=== PATIENT | male | born 1955 | race Caucasian/White ===

== ENCOUNTER 2020-07-06 08:57 | Emergency (ER) | payer OTHER ==
[2020-07-06] MEDS ORDERED: NA CHLORIDE 0.9% 500 ML ONE (09:39)
[2020-07-06 10:00] LABS: Absolute Lymphocytes (CBC) 1.5 K/uL (0.7-4.9); Basophils % 0.6 % (0-1.3); Hematocrit 42.2 % (39.6-49.0); Lymphocytes % 13.7 % (15.3-44.8); MPV 7.5 fL (7.6-11.3)
[2020-07-06 10:19] LABS: ALT/SGPT 44 U/L (12-78); AST/SGOT 49 U/L (15-37); Alkaline Phosphatase 66 U/L (45-117); BUN Blood Urea Nitrogen 6 mg/dL (7-18); Bicarbonate 23 mmol/L (21-32); Bilirubin Direct < 0.1 mg/dL (0-0.2); Bilirubin Total 0.3 mg/dL (0.2-1.0); Glucose Level 103 mg/dL (74-106); Lipase 173 U/L (73-393); Potassium 3.7 mmol/L (3.5-5.1); Protein, Total 7.1 g/dL (6.4-8.2); Sodium Level 131 mmol/L (136-145)
--- NOTE | 2020-07-06 11:43 | RAD REPORT ---
EXAM DESCRIPTION: CT - Abdomen Pelvis W Contrast - 07/06/2020 11:08 am CLINICAL HISTORY: Abdominal pain. COMPARISON: None. TECHNIQUE: Computed axial tomography of the abdomen and pelvis was obtained. 100 cc Isovue-300 is ad ministered intravenously. Oral contrast was given. All CT scans are performed using dose optimization technique as appropriate and may include automated exposure control or mA/KV adjustment according to patient size. FINDINGS: The liver, spleen, , adrenals and kidneys appear unremarkable. The pancreatic head is borderline prominent. The density is normal. No pancreatic/common bile duct di latation The appendix is normal caliber. There is no evidence of diverticulitis Atherosclerotic disease IMPRESSION: Borderline prominence of the pancreatic head. Given that the density is normal this pro bably is a normal variant. It is recommended that the patient have a followup ultrasound in 2 months for re-evaluation
[2020-07-06 13:43] LABS: Urine Blood TRACE (NEG); Urine Glucose NEGATIVE (NEG); Urine Protein NEGATIVE (NEG)
[2020-07-06 13:51] LABS: Urine Bacteria NONE SEEN /HPF (NONE SEEN); Urine Culture Reflex Order NOT NEEDED; Urine RBC <5 /HPF (NONE SEEN)
--- NOTE | 2020-07-06 14:28 | EDPHYS ---
Physician Documentation [facility] Name: Tylor Hanna Age: 64 yrs Sex: Male : 1955 Arrival Date: 07/06/2020 Time: 09:00 Bed 8 Private MD: Femi Roa E ED Physician Isidro Chatman HPI: 07/06 09:36 This 64 yrs old Male presents to ER via Ambulatory with complaints of Fever, snw Diarrhea. 09:36 The patient reports fever, that was measured at 102 degrees Fahrenheit. Onset: The snw symptoms/episode began/occurred 8 day(s) ago, and became persistent. Associated signs and symptoms: Pertinent positives: chills, decreased appetite, diarrhea. 09:40 Severity of symptoms: At their worst the symptoms were moderate. The patient has not snw experienced similar symptoms in the past. The patient has not recently seen a physician, the patient's primary care provider is Dr. Roa. denies abd pain. Historical: - Allergies: 09:15 No Known Allergies; iw - Home Meds: 09:15 lisinopril 10 mg Oral tab 1 tab once daily [Active]; aspirin 325 mg Oral tab 1 tab once iw daily [Active]; simvastatin 40 mg Oral tab 1 tab once daily [Active]; trazodone 150 mg Oral tab 0.5 tab nightly [Active]; - PMHx: 09:15 Hypertension; Myocardial infarction; Hyperlipidemia; iw - PSHx: 09:15 Heart stents; shoulder; Knee surgery; iw - Immunization history:: Adult Immunizations. - Social history:: Smoking status: Patient reports the use of cigarette tobacco products, smokes two packs cigarettes per day. quit 13 days ago, Patient/guardian denies using tobacco. ROS: 09:34 Eyes: Negative for injury, pain, redness, and discharge, ENT: Negative for injury, snw pain, and discharge, Neck: Negative for injury, pain, and swelling, Cardiovascular: Negative for chest pain, palpitations, and edema, Respiratory: Negative for shortness of breath, cough, wheezing, and pleuritic chest pain, Abdomen/GI: Negative for abdominal pain, nausea, vomiting, and constipation, + diarrhea Back: Negative for injury and pain, : Negative for injury, bleeding, discharge, and swelling, MS/Extremity: Negative for injury and deformity, Skin: Negative for injury, rash, and discoloration, Neuro: Negative for headache, weakness, numbness, tingling, and seizure. 09:34 Constitutional: Positive for body aches, chills, fever, poor PO intake. Exam: 09:33 Head/Face: Normocephalic, atraumatic. Eyes: Pupils equal round and reactive to light, snw extra-ocular motions intact. Lids and lashes normal. Conjunctiva and sclera are non-icteric and not injected. Cornea within normal limits. Periorbital areas with no swelling, redness, or edema. ENT: Nares patent. No nasal discharge, no septal abnormalities noted. Tympanic membranes are normal and external auditory canals are clear. Oropharynx with no redness, swelling, or masses, exudates, or evidence of obstruction, uvula midline. Mucous membranes moist. Neck: Trachea midline, no thyromegaly or masses palpated, and no cervical lymphadenopathy. Supple, full range of motion without nuchal rigidity, or vertebral point tenderness. No Meningismus. Chest/axilla: Normal chest wall appearance and motion. Nontender with no deformity. No lesions are appreciated. Cardiovascular: Regular rate and rhythm with a normal S1 and S2. No gallops, murmurs, or rubs. Normal PMI, no JVD. No pulse deficits. Respiratory: Lungs have equal breath sounds bilaterally, clear to auscultation and percussion. No rales, rhonchi or wheezes noted. No increased work of breathing, no retractions or nasal flaring. Abdomen/GI: Soft, non-tender, with normal bowel sounds. No distension or tympany. No guarding or rebound. No evidence of tenderness throughout. Back: No spinal tenderness. No costovertebral tenderness. Full range of motion. Skin: Warm, dry with normal turgor. Normal color with no rashes, no lesions, and no evidence of cellulitis. MS/ Extremity: Pulses equal, no cyanosis. Neurovascular intact. Full, normal range of motion. Neuro: Awake and alert, GCS 15, oriented to person, place, time, and situation. Cranial nerves II-XII grossly intact. Motor strength 5/5 in all extremities. Sensory grossly intact. Cerebellar exam normal. Normal gait. Psych: Awake, alert, with orientation to person, place and time. Behavior, mood, and affect are within normal limits. 09:33 Constitutional: The patient appears alert, awake, febrile. Vital Signs: 09:11 BP 147 / 89; Pulse 101; Resp 16 S; Temp 100.1; Pulse Ox 100% on R/A; Weight 63.5 kg; iw Height 6 ft. 0 in. (182.88 cm); Pain 0/10; 09:52 BP 156 / 75; Pulse 81; Resp 15; Pulse Ox 100% ; Pain 0/10; jl7 11:00 BP 141 / 78; Pulse 66; Resp 15 S; Pulse Ox 99% on R/A; jl7 12:00 BP 119 / 72; Pulse 62; Resp 15; Pulse Ox 99% ; jl7 12:38 BP 155 / 97; Pulse 91; Resp 20 S; Pulse Ox 98% on R/A; ca1 14:00 BP 134 / 72; Pulse 65; Resp 17 S; Pulse Ox 100% ; jl7 09:11 Body Mass Index 18.99 (63.50 kg, 182.88 cm) iw MDM: 09:36 Patient medically screened. snw 14:35 Data reviewed: vital signs, nurses notes. Data interpreted: Pulse oximetry: on room air snw is 98 %. Interpretation: normal. Counseling: I had a detailed discussion with the patient and/or guardian regarding: the historical points, exam findings, and any diagnostic results supporting the discharge/admit diagnosis, the presence of at least one elevated blood pressure reading (>120/80) during this emergency department visit, lab results, radiology results, the need for outpatient follow up, to return to the emergency department if symptoms worsen or persist or if there are any questions or concerns that arise at home. Special discussion: I have referred the patient to see his PCP for further evaluation of high blood pressure. Based on the history and exam findings, there is no indication for further emergent testing or inpatient evaluation. I discussed with the patient/guardian the need to see the primary care provider for further evaluation of the symptoms. 07/06 09:16 Order name: Basic Metabolic Panel; Complete Time: 10:20 snw 07/06 09:16 Order name: CBC with Diff; Complete Time: 10:03 snw 07/06 09:16 Order name: Hepatic Function; Complete Time: 10:20 snw 07/06 09:16 Order name: Lipase; Complete Time: 10:20 snw 07/06 09:16 Order name: Urine Culture [facility] 07/06 09:16 Order name: Urine Microscopic Only; Complete Time: 13:52 snw 07/06 09:16 Order name: IV Saline Lock; Complete Time: 09:51 snw 07/06 09:16 Order name: CT Abd/Pelvis - PO and IV Contrast; Complete Time: 11:57 snw 07/06 09:17 Order name: CDIFF [facility] 07/06 09:17 Order name: Occult Blood [facility] 07/06 09:17 Order name: Fecal Leukocyte Stain [facility] 07/06 09:17 Order name: Stool Culture [facility] 07/06 13:30 Order name: Urine Dipstick--Ancillary (enter results); Complete Time: 13:45 bd 07/06 09:16 Order name: Labs collected and sent; Complete Time: 09:51 snw Administered Medications: 09:51 Drug: NS 0.9% 500 ml Route: IV; Rate: bolus; Site: right forearm; jl7 10:45 Follow up: Response: No adverse reaction; IV Status: Completed infusion; IV Intake: jl7 500ml Disposition: 16:24 Co-signature as Attending Physician, Isidro Chatman MD. rn Disposition: 07/06/20 14:27 Discharged to Home. Impression: Fever presenting with conditions classified elsewhere, Diarrhea, unspecified. - Condition is Stable. - Discharge Instructions: Food Choices to Help Relieve Diarrhea, Adult, Diarrhea, Adult, Fever, Adult, Rehydration, Adult. - Prescriptions for Augmentin 875- 125 mg Oral Tablet - take 1 tablet by ORAL route every 12 hours for 10 days; 20 tablet. - Medication Reconciliation Form, Thank You Letter, Antibiotic Education, Prescription Opioid Use form. - Follow up: Emergency Department; When: As needed; Reason: Worsening of condition. Follow up: Femi Roa MD; When: 5 - 6 days; Reason: Recheck today's complaints, Continuance of care, Re-evaluation by your physician. - Notes: Please obtain stool culture and take to lab within one hour. Start antibiotics after collection. Signatures: Dispatcher [employer] EDMS Allison Holt, JACQUARD CARD CUTTER-C JACQUARD CARD CUTTER-Csnw Mary West, Isidro Gibson RN, MD MD rn Leal, Jahala, RN RN jl7 Corrections: (The following items were deleted from the chart) 15:30 14:27 07/06/2020 14:27 Discharged to Home. Impression: Fever presenting with conditions jl7 classified elsewhere; Diarrhea, unspecified. Condition is Stable. Forms are Medication Reconciliation Form, Thank You Letter, Antibiotic Education, Prescription Opioid Use. Follow up: Emergency Department; When: As needed; Reason: Worsening of condition. Follow up: Femi Roa; When: 5 - 6 days; Reason: Recheck today's complaints, Continuance of care, Re-evaluation by your physician. snw
--- NOTE | 2020-07-06 14:28 | ER ---
Nurse's Notes [facility] Name: Tylor Hanna Age: 64 yrs Sex: Male : 1955 Arrival Date: 07/06/2020 Time: 09:00 Bed 8 Private MD: Femi Roa E Diagnosis: Fever presenting with conditions classified elsewhere;Diarrhea, unspecified Presentation: 07/06 09:11 Chief complaint: Patient states: fever on and off for 8 days, diarrhea in morning all 8 iw days, stool was completely black, was taking Pepto Bismol pills, no pain, vomited once 8 days ago. Coronavirus screen: chills, diarrhea, fever, Client presents with at least one sign or symptom that may indicate coronavirus-19. Standard/surgical mask placed on the client. Provider contacted for isolation considerations. Ebola Screen: Patient negative for fever greater than or equal to 101.5 degrees Fahrenheit, and additional compatible Ebola Virus Disease symptoms Patient denies exposure to infectious person. Patient denies travel to an Ebola-affected area in the 21 days before illness onset. No symptoms or risks identified at this time. Initial Sepsis Screen: Does the patient meet any 2 criteria? No. Patient's initial sepsis screen is negative. Does the patient have a suspected source of infection? No. Patient's initial sepsis screen is negative. Risk Assessment: Do you want to hurt yourself or someone else? Patient reports no desire to harm self or others. Onset of symptoms was June 28, 2020. 09:11 Method Of Arrival: Ambulatory iw 09:11 Acuity: NICHELLE 3 iw Historical: - Allergies: 09:15 No Known Allergies; iw - Home Meds: 09:15 lisinopril 10 mg Oral tab 1 tab once daily [Active]; aspirin 325 mg Oral tab 1 tab once iw daily [Active]; simvastatin 40 mg Oral tab 1 tab once daily [Active]; trazodone 150 mg Oral tab 0.5 tab nightly [Active]; - PMHx: 09:15 Hypertension; Myocardial infarction; Hyperlipidemia; iw - PSHx: 09:15 Heart stents; shoulder; Knee surgery; iw - Immunization history:: Adult Immunizations. - Social history:: Smoking status: Patient reports the use of cigarette tobacco products, smokes two packs cigarettes per day. quit 13 days ago, Patient/guardian denies using tobacco. Screenin:52 Abuse screen: Denies threats or abuse. Denies injuries from another. Nutritional jl7 screening: No deficits noted. Tuberculosis screening: No symptoms or risk factors identified. Fall Risk IV access (20 points). Total Hinton Fall Scale indicates No Risk (0-24 pts). Assessment: 09:52 General: Appears in no apparent distress. uncomfortable, Behavior is calm, cooperative, jl7 appropriate for age. Pain: Denies pain. Neuro: Level of Consciousness is awake, alert, obeys commands, Oriented to person, place, time, situation. Cardiovascular: Patient's skin is warm and dry. Respiratory: Airway is patent Respiratory effort is even, unlabored, Respiratory pattern is regular, symmetrical. GI: Abdomen is flat, non-distended, Reports diarrhea, Patient currently denies nausea, vomiting. Derm: 11:30 Reassessment: Patient appears in no apparent distress at this time. No changes from jl7 previously documented assessment. 13:00 Reassessment: Patient appears in no apparent distress at this time. No changes from jl7 previously documented assessment. Patient and/or family updated on plan of care and expected duration. Pain level reassessed. Patient is alert, oriented x 3, equal unlabored respirations, skin warm/dry/pink. Vital Signs: 09:11 BP 147 / 89; Pulse 101; Resp 16 S; Temp 100.1; Pulse Ox 100% on R/A; Weight 63.5 kg; iw Height 6 ft. 0 in. (182.88 cm); Pain 0/10; 09:52 BP 156 / 75; Pulse 81; Resp 15; Pulse Ox 100% ; Pain 0/10; jl7 11:00 BP 141 / 78; Pulse 66; Resp 15 S; Pulse Ox 99% on R/A; jl7 12:00 BP 119 / 72; Pulse 62; Resp 15; Pulse Ox 99% ; jl7 12:38 BP 155 / 97; Pulse 91; Resp 20 S; Pulse Ox 98% on R/A; ca1 14:00 BP 134 / 72; Pulse 65; Resp 17 S; Pulse Ox 100% ; jl7 09:11 Body Mass Index 18.99 (63.50 kg, 182.88 cm) iw ED Course: 09:00 Patient arrived in ED. as 09:00 Femi Roa MD is Private Physician. as 09:08 Allison Holt [facility]C [facility] snw 09:08 Isidro Chatman MD is Attending Physician. snw 09:13 Triage completed. iw 09:15 Arm band placed on. iw 09:16 Parvin Corona, RN is Primary Nurse. jl7 09:52 Patient has correct armband on for positive identification. Bed in low position. Call jl7 light in reach. Side rails up X 1. Pulse ox on. NIBP on. Warm blanket given. 09:52 Initial lab(s) drawn, by me, sent to lab. Inserted saline lock: 20 gauge in right jl7 forearm, using aseptic technique. Blood collected. 11:09 CT Abd/Pelvis - PO and IV Contrast In Process Unspecified. EDMS 14:27 Femi Roa MD is Referral Physician. snw 14:45 No provider procedures requiring assistance completed. IV discontinued, intact, jl7 bleeding controlled, No redness/swelling at site. Pressure dressing applied. Administered Medications: 09:51 Drug: NS 0.9% 500 ml Route: IV; Rate: bolus; Site: right forearm; jl7 10:45 Follow up: Response: No adverse reaction; IV Status: Completed infusion; IV Intake: jl7 500ml Intake: 10:45 IV: 500ml; Total: 500ml. jl7 Outcome: 14:27 Discharge ordered by . snw 15:15 Discharged to home ambulatory. jl7 15:15 Condition: stable 15:15 Discharge instructions given to patient, Instructed on discharge instructions, follow up and referral plans. medication usage, Demonstrated understanding of instructions, follow-up care, medications, Prescriptions given X 1. 15:30 Patient left the ED. jl7 Signatures: Dispatcher [employer] EDCT Allison Holt FNP-C PHYSICAL SCIENCES INSTRUCTOR-Anabelle Hicks as Mary West, RN RN iw Parvin Corona, RN RN jl7 Lola Caldera RN RN ca1
[2020-07-07 14:25] LABS: C.diff Antigen/Toxin Ag neg : Tox neg (NEG : NEG)
== END 2020-07-06 15:30 | disposition home or self-care (01) ==
LOC: ER 08:57
DX: R19.7 Diarrhea, unspecified (principal); I10 Essential (primary) hypertension; E78.5 Hyperlipidemia, unspecified; F17.210 Nicotine dependence, cigarettes, uncomplicated; Z95.818 Presence of other cardiac implants and grafts; Z79.82 Long term (current) use of aspirin
CPT/HCPCS: 87088; 85025; 87086; 80048; 36415; 80076; 83690; 74177; Q9967; J7040; 81003; 81015; 96360; 99284